=== PATIENT | female | born 1985 | race American Indian/Alaskan Native ===

== ENCOUNTER 2016-09-26 21:58 | Emergency (ER) | payer SELFPAY | END 2016-09-26 23:00 | disposition left against medical advice (07) | LOC: ED 21:58 | DX: R51 Headache (principal); R10.9 Unspecified abdominal pain; Z53.21 Procedure and treatment not carried out due to patient leaving prior to being seen by health care provider ==

== ENCOUNTER 2018-01-31 14:07 | Emergency (ER) | payer OTHER ==
[2018-01-31] MEDS ORDERED: BACTRIM DS PO ONE (20:29)
[2018-01-31] MEDS ORDERED: ULTRAM PO ONE (20:29)
--- NOTE | 2018-01-31 20:34 | Emergency Department Report ---
- General Chief Complaint: Wound/Laceration Stated Complaint: BRUISES ON RIGHT SIDE OF BODY Time Seen by Provider: 01/31/18 20:19 Source: patient Mode of arrival: Ambulatory Limitations: No Limitations - History of Present Illness Initial Comments: Patient is a 32-year-old [employer] worker who presents for abrasions to bilateral elbows and right lower abdomen status post fall on tarmak, causing abrasions patient did report incident to safety spec there's no LOC patient was immediately ambulatory after incident is no numbness no tingling no deformity patient requesting screening and treatment for injuries and clearance for work. Onset/Timin -: days(s) Location: abdomen (abrasion righ lower abd) Extremity Location: Left: Elbow (abrasions ), Right: Elbow Place: work Patient Tetanus UTD: Yes (5 months ago ) Context: accidental, fall Associated Symptoms: pain - Related Data Home Medications Medication Instructions Recorded Confirmed Last Taken Vits96/Iron Fum/Folic 1 each PO QDAY 10/27/13 11/06/13 11/05/13 [ Tablet] raNITIdine HCl [Ranitidine 150mg 150 mg PO DAILY 10/27/13 11/06/13 11/06/13 Cap] Previous Rx's Medication Instructions Recorded Last Taken Type Acetaminophen/Codeine [Tylenol #3] 1 tab PO Q6H PRN #15 tab 04/27/13 10/27/13 08 :00 Rx Ibuprofen [Motrin] 800 mg PO Q8H PRN #30 tablet 11/08/13 Unknown Rx Azithromycin [Zithromax Z-NAVDEEP] 500 mg PO DAILY #1 pkg 12/28/14 Unknown Rx Loratadine [Claritin] 10 mg PO DAILY #30 tablet 12/28/14 Unknown Rx Promethazine /Codeine 5 ml PO Q6H PRN #120 udc 12/28/14 Unknown Rx [Phenergan/Codeine 6.25-10 mg/5 ml] predniSONE [Deltasone] 20 mg PO QDAY #5 tab 12/28/14 Unknown Rx Bacitracin/Polymyxin B Sulfate 15 gm TP BID 14 Days #1 tube 01/31/18 Unknown Rx [Bacitracin-Polymyxin Ointment] Ibuprofen 800 mg PO TID PRN #30 tablet 01/31/18 Unknown Rx Sulfamethoxazole/Trimethoprim 1 each PO BID #14 tablet 01/31/18 Unknown Rx [Bactrim DS TAB] Allergies Allergy/AdvReac Type Severity Reaction Status Date / Time aspirin Allergy Vomiting Verified 04/27/13 20:08 Penicillins Allergy Vomiting Verified 04/27/13 20:08 ED Review of Systems ROS: Stated complaint: BRUISES ON RIGHT SIDE OF BODY Other details as noted in HPI Constitutional: denies: chills, fever Eyes: denies: eye pain, eye discharge, vision change ENT: denies: ear pain, throat pain Respiratory: denies: cough, shortness of breath, wheezing Cardiovascular: denies: chest pain, palpitations Endocrine: no symptoms reported Gastrointestinal: denies: abdominal pain, nausea, diarrhea Genitourinary: denies: urgency, dysuria, discharge Musculoskeletal: denies: back pain, joint swelling, arthralgia Skin: lesions (abrasions no drainage mild skin erythema no fever ) Neurological: denies: headache, weakness, paresthesias Psychiatric: denies: anxiety, depression Hematological/Lymphatic: denies: easy bleeding, easy bruising ED Past Medical Hx - Past Medical History Hx Hypertension: Yes Hx Congestive Heart Failure: No Hx Diabetes: No Hx Deep Vein Thrombosis: No Hx Renal Disease: No Hx Sickle Cell Disease: No Hx Seizures: No Hx Asthma: No Hx COPD: No Hx HIV: No - Surgical History Past Surgical History?: No - Social History Smoking Status: Current Every Day Smoker - Medications Home Medications: Home Medications Medication Instructions Recorded Confirmed Last Taken Type Acetaminophen/Codeine [Tylenol #3] 1 tab PO Q6H PRN #15 tab 04/27/13 11/06/13 08:00 Rx Vits96/Iron Fum/Folic 1 each PO QDAY 10/27/13 11/06/13 11/05/13 History [ Tablet] raNITIdine HCl [Ranitidine 150mg 150 mg PO DAILY 10/27/13 11/06/13 11/06/13 History Cap] Ibuprofen [Motrin] 800 mg PO Q8H PRN #30 tablet 11/08/13 Unknown Rx Azithromycin [Zithromax Z-NAVDEEP] 500 mg PO DAILY #1 pkg 12/28/14 Unknown Rx Loratadine [Claritin] 10 mg PO DAILY #30 tablet 12/28/14 Unknown Rx Promethazine /Codeine 5 ml PO Q6H PRN #120 udc 12/28/14 Unknown Rx [Phenergan/Codeine 6.25-10 mg/5 ml] predniSONE [Deltasone] 20 mg PO QDAY #5 tab 12/28/14 Unknown Rx Bacitracin/Polymyxin B Sulfate 15 gm TP BID 14 Days #1 tube 01/31/18 Unknown Rx [Bacitracin-Polymyxin Ointment] Ibuprofen 800 mg PO TID PRN #30 tablet 01/31/18 Unknown Rx Sulfamethoxazole/Trimethoprim 1 each PO BID #14 tablet 01/31/18 Unknown Rx [Bactrim DS TAB] ED Physical Exam - General Limitations: No Limitations General appearance: alert, in no apparent distress - Head Head exam: Present: atraumatic, normocephalic - Eye Eye exam: Present: normal appearance - ENT ENT exam: Present: mucous membranes moist - Neck Neck exam: Present: normal inspection - Respiratory Respiratory exam: Present: normal lung sounds bilaterally. Absent: respiratory distress - Cardiovascular Cardiovascular Exam: Present: regular rate, normal rhythm. Absent: systolic murmur, diastolic murmur, rubs, gallop - GI/Abdominal GI/Abdominal exam: Present: soft, normal bowel sounds - Extremities Exam Extremities exam: Present: full ROM, tenderness (bilat elbow and abdominal abrasions), normal capillary refill, other (abrasions bilat elbow less than 1 cm no bleeding mild erythema no fever no deformity rom intact Right Lowe abdm abrasion 1x1 cm no drainage mild erythema no drainage no fever mild pain to palpation). Absent: pedal edema, joint swelling, calf tenderness - Back Exam Back exam: Present: normal inspection, full ROM. Absent: tenderness, CVA tenderness (R), CVA tenderness (L), muscle spasm, paraspinal tenderness, vertebral tenderness - Neurological Exam Neurological exam: Present: alert, oriented X3, CN II-XII intact, normal gait. Absent: reflexes normal - Psychiatric Psychiatric exam: Present: normal affect, normal mood - Skin Skin exam: Present: warm, dry, intact, normal color, abrasion (abrasions as above ). Absent: rash, cyanosis, diaphoretic, erythema, urticaria, vesicles, petechiae, pallor, ecchymosis ED Course Vital Signs 01/31/18 14:44 Temperature 99.0 F Pulse Rate 90 Respiratory 18 Rate Blood Pressure 114/70 O2 Sat by Pulse 98 Oximetry ED Medical Decision Making - Medical Decision Making Exam on March will be treated with bacitracin 7 day course of Bactrim ibuprofen when necessary patient given wound care instructions and verbalized understanding and agreement with same pt for dc to home in stable condition at this time. Critical care attestation.: If time is entered above; I have spent that time in minutes in the direct care of this critically ill patient, excluding procedure time. ED Disposition Clinical Impression: Abrasion, multiple sites Disposition: DC-01 TO HOME OR SELFCARE Is pt being admited?: No Does the pt Need Aspirin: No Condition: Good Instructions: Abrasion (ED) Prescriptions: Bacitracin/Polymyxin B Sulfate [Bacitracin-Polymyxin Ointment] 15 gm TP BID 14 Days #1 tube Ibuprofen 800 mg PO TID PRN #30 tablet PRN Reason: pain Sulfamethoxazole/Trimethoprim [Bactrim DS TAB] 1 each PO BID #14 tablet Referrals: PRIMARY CARE, [Primary Care Provider] - 3-5 Days Forms: Work/School Release Form(ED) Time of Disposition: 20:50
[2018-01-31] MEDS ORDERED: TRIPLE ANTIBIOTIC TP ONE ×2 (20:46→20:50)
[2018-01-31 20:58] VITALS: BP 116/70
== END 2018-01-31 20:58 | disposition home or self-care (01) ==
LOC: ED 14:07
DX: S50.311A Abrasion of right elbow, initial encounter (principal); S50.312A Abrasion of left elbow, initial encounter; S30.811A Abrasion of abdominal wall, initial encounter; I10 Essential (primary) hypertension; F17.200 Nicotine dependence, unspecified, uncomplicated; Z88.6 Allergy status to analgesic agent; Z88.0 Allergy status to penicillin; W01.198A Fall on same level from slipping, tripping and stumbling with subsequent striking against other object, initial encounter; Y93.89 Activity, other specified; Y92.89 Other specified places as the place of occurrence of the external cause; Y99.8 Other external cause status
CPT/HCPCS: 99283; A6250